=== PATIENT | male | born 1970 | race Caucasian/White ===

== ENCOUNTER 2016-06-15 10:25 | Inpatient (IN) | payer BC ==
[~2016-06-15] VITALS: Ht 170.2 cm; Wt 90.7 kg
[2016-06-15] MEDS ORDERED: ASPIRIN 81MG TABLET PO STA (11:45)
[2016-06-15] MEDS ORDERED: NITROGLYCERIN 0.4MG TABLET SL SL PRN (11:45)
[2016-06-15 12:38] LABS: BASOPHILS % 0.6 % (0.0-2.0); EOSINOPHILS % 0.9 % (0.0-5.0); HEMATOCRIT. 49.3 % (42.0-52.0); LYMPHOCYTES % 22.6 % (20.0-50.0); MEAN CORPUSCULAR HEMOGLOBIN 30.9 pg (28.0-32.0); MEAN CORPUSCULAR HGB CONC 34.4 g/dL (31.0-37.0); MEAN CORPUSCULAR VOLUME 89.6 fL (80.0-94.0); MEAN PLATELET VOLUME 9.1 fl (7.4-10.4); MONOCYTES % 6.3 % (2.0-8.0); NEUTROPHILS % 69.6 % (40.0-76.0); PLATELET 187 x1000/uL (130-400); RED BLOOD CELL COUNT 5.51 mill/uL (4.7-6.1); RED CELL DISTRIBUTION WIDTH 13.8 % (11.6-14.6); WHITE BLOOD COUNT 6.5 x1000/uL (4.5-11.0)
[2016-06-15 12:40] LABS: CHLORIDE 103 mEq/L (98-107)
[2016-06-15 12:47] LABS: D-DIMER < 0.19 mg/L FEU (<0.50); INR 1.1; PARTIAL THROMBOPLASTIN TIME 29.1 sec (24.0-34.0)
[2016-06-15 12:51] LABS: ANION GAP 8; CALCIUM 8.5 mg/dL (8.5-10.1); CARBON DIOXIDE 32 mEq/L (21-32); INDEX HEMOLYSI 2 (1-3); INDEX ICTERIC 1 (1-4); INDEX LIPEMIC 1 (1-3); TROPONIN I < 0.02 ng/mL (0.00-0.04); UREA NITROGEN BLOOD 11 mg/dL (7-21); eGFR > 60 mL/min (>60)
[2016-06-15] MEDS ORDERED: ACETAMINOPHEN 325MG TABLET PO PRN (14:15)
[2016-06-15] MEDS ORDERED: CLONIDINE 0.1MG TABLET PO PRN (14:15)
[2016-06-15] MEDS ORDERED: MORPHINE SULFATE 2 MG/ML CPJ (NOT FOR IM USE) IV PRN (14:15)
[2016-06-15] MEDS ORDERED: DIPHENHYDRAMINE 50MG/ML VIAL IV PRN (14:15)
[2016-06-15] MEDS ORDERED: IPRATROPIUM/ALBUTEROL 0.5-3(2.5)MG/3ML NEB INH PRN (14:15)
[2016-06-15] MEDS ORDERED: ONDANSETRON HCL 4MG/2ML VIAL IV PRN (14:15)
[2016-06-15] MEDS ORDERED: LORAZEPAM 2MG/ML CPJ IV PRN (14:15)
[2016-06-15] MEDS ORDERED: MAGNESIUM/ALUMINUM HYDROXIDE/SIMETHICONE 30ML UDC PO PRN (14:15)
[2016-06-15] MEDS ORDERED: DOCUSATE SODIUM 100MG CAPSULE PO PRN (14:15)
[2016-06-15 16:34] VITALS: BP 139/92
[2016-06-15 16:37] VITALS: BP 139/92
[2016-06-15] MEDS ORDERED: LOSA100T11 PO (17:00)
[2016-06-15] MEDS ORDERED: ASPI-1035 PO (17:00)
[2016-06-15] MEDS ORDERED: PARO10TA26 PO (17:00)
[2016-06-15 19:29] LABS: CLARITY URINE CLEAR (CLEAR); COLOR URINE YELLOW (YELLOW); GLUCOSE URINE NEGATIVE (NEGATIVE); KETONES URINE NEGATIVE (NEGATIVE); LEUKOCYTE ESTERASE URINE NEGATIVE (NEGATIVE); NITRITE URINE NEGATIVE (NEGATIVE); OCCULT BLOOD URINE NEGATIVE (NEGATIVE); PH URINE 6.5 (4.5-8.0); PROTEIN URINE NEGATIVE (NEGATIVE); SPECIFIC GRAVITY URINE 1.012 (1.005-1.030); UROBILINOGEN URINE 0.2 E.U./dL (0.2-1.0)
[2016-06-15 19:41] LABS: *AMPHETAMINES SCREEN URINE NEGATIVE (NEGATIVE); *BARBITURATES SCREEN URINE NEGATIVE (NEGATIVE); *BENZODIAZEPINES SCREEN URINE NEGATIVE (NEGATIVE); *COCAINE SCREEN URINE NEGATIVE (NEGATIVE); CANNABINOID URINE SCREEN NEGATIVE (NEGATIVE); ECSTASY MDMA SCREEN URINE NEGATIVE (NEGATIVE); METHADONE URINE SCREEN NEGATIVE (NEGATIVE); OPIATES URINE SCREEN NEGATIVE (NEGATIVE); PHENCYCLIDINE URINE SCREEN NEGATIVE (NEGATIVE)
[2016-06-15 20:00] VITALS: BP 121/77
[2016-06-15] MEDS ORDERED: ATORVASTATIN CALCIUM 20MG TABLET PO SCH (21:00)
[2016-06-15] MEDS: ENOXAPARIN 30MG/0.3ML SYR SUBCUT SCH (21:39)
[2016-06-15 23:26] LABS: CREATINE KINASE MB FRACTION 0.7 ng/mL (0.5-3.6); TROPONIN I < 0.02 ng/mL (0.00-0.04)
[2016-06-15 23:34] VITALS: BP 120/82
[2016-06-16 04:00] VITALS: BP 116/82
[2016-06-16 06:04] LABS: BASOPHILS % 0.7 % (0.0-2.0); HEMATOCRIT. 47.4 % (42.0-52.0); HEMOGLOBIN. 16.2 g/dL (14.0-18.0); LYMPHOCYTES % 40.4 % (20.0-50.0); MEAN CORPUSCULAR HEMOGLOBIN 30.7 pg (28.0-32.0); MEAN CORPUSCULAR HGB CONC 34.3 g/dL (31.0-37.0); MEAN CORPUSCULAR VOLUME 89.7 fL (80.0-94.0); MEAN PLATELET VOLUME 8.9 fl (7.4-10.4); MONOCYTES % 9.5 % (2.0-8.0); NEUTROPHILS % 47.4 % (40.0-76.0); PLATELET 172 x1000/uL (130-400); RED BLOOD CELL COUNT 5.28 mill/uL (4.7-6.1); RED CELL DISTRIBUTION WIDTH 13.8 % (11.6-14.6); WHITE BLOOD COUNT 5.2 x1000/uL (4.5-11.0)
[2016-06-16 06:22] LABS: ANION GAP 11; CALCIUM 8.4 mg/dL (8.5-10.1); CARBON DIOXIDE 28 mEq/L (21-32); CHLORIDE 105 mEq/L (98-107); INDEX HEMOLYSI 1 (1-3); INDEX ICTERIC 1 (1-4); INDEX LIPEMIC 1 (1-3); UREA NITROGEN BLOOD 12 mg/dL (7-21); eGFR > 60 mL/min (>60)
[2016-06-16 06:25] LABS: CREATINE KINASE MB FRACTION < 0.5 ng/mL (0.5-3.6); TROPONIN I < 0.02 ng/mL (0.00-0.04)
[2016-06-16 08:00] VITALS: BP 118/74
[2016-06-16] MEDS: ENOXAPARIN 30MG/0.3ML SYR SUBCUT SCH (08:49)
[2016-06-16] MEDS ORDERED: ASPIRIN 81MG EC TABLET PO SCH ×2 (09:00)
[2016-06-16] MEDS ORDERED: PAROXETINE HCL 10MG TABLET PO SCH (09:00)
[2016-06-16] MEDS ORDERED: LOSARTAN POTASSIUM 100 MG TABLET PO SCH (09:00)
[2016-06-16 12:00] VITALS: BP 135/90
[2016-06-16 16:00] VITALS: BP 124/78
[2016-06-16 16:01] VITALS: BP 135/90
== END 2016-06-16 16:15 | disposition home or self-care (01) | DRG 313 ==
LOC: ER 11:23 → 7WST 13:43 → SUPCPDRO 14:02
PROVIDERS: ADMIT Internal Medicine Nephrology; ATTEND Internal Medicine Nephrology
DX: R07.9 Chest pain, unspecified (principal); I10 Essential (primary) hypertension; E66.9 Obesity, unspecified; R73.03 Prediabetes; Z88.2 Allergy status to sulfonamides; Z79.899 Other long term (current) drug therapy; Z79.82 Long term (current) use of aspirin; Z82.49 Family history of ischemic heart disease and other diseases of the circulatory system; Z68.31 Body mass index [BMI] 31.0-31.9, adult
CPT/HCPCS: 36415; 71010; 80048; 80061; 80305; 81003; 82553; 83036; 83735; 84484; 85025; 85379; 85610; 85730; 93005; 99285; J1650